=== PATIENT | female | born 1995 | race Two or more races ===

== ENCOUNTER 2019-05-09 08:57 | Emergency (ER) | payer SELFPAY ==
--- NOTE | 2019-05-09 09:36 | ER Document Report ---
ED Medical Screen (RME) - General Chief Complaint: OB Problem (<20wks) Stated Complaint: VAGINAL BLEEDING Time Seen by Provider: 05/09/19 09:30 Notes: Patient is a 23-year-old female G1, P0 who presents emergency department with a chief complaint of vaginal bleeding. Patient reports last menstrual cycle was on March 20. Patient reports she has been to the health department once and had her verified via urine specimen. Patient estimates being about 7 . Patient reports she woke up this morning and when she went to use the restroom she wiped and noticed some blood on the tissue paper. Patient reports she put a menstrual pad in place but has not checked it to see if she is still bleeding. Patient denies urinary symptoms. TRAVEL OUTSIDE OF THE [place] IN LAST 30 DAYS: No - Related Data Allergies/Adverse Reactions: No Known Allergies Allergy (Verified 05/09/19 09:30) Past Medical History - Social History Chew tobacco use (# tins/day): No Frequency of alcohol use: None Drug Abuse: None - Immunizations Hx Diphtheria, Pertussis, Tetanus Vaccination: Yes Physical Exam - Vital signs Vitals: Temp Pulse Resp BP Pulse Ox 98.7 F 83 18 131/80 H 99 05/09/19 09:00 05/09/19 09:00 05/09/19 09:00 05/09/19 09:00 05/09/19 09:00 - Abdominal Inspection: Normal Distension: No distension Bowel sounds: Normal Tenderness: Nontender Organomegaly: No organomegaly Course - Re-evaluation Re-evalutation: 05/09/19 09:36 Will obtain basic labs, quant, RhoGam work-up due to vaginal bleeding and and ultrasound. Patient was updated on plan of care at this time will be reevaluated by physician in the back. Patient's not tachycardic or hypotensive at this time. Patient is nontoxic-appearing in triage. I have greeted and performed a rapid initial assessment of this patient. A comprehensive ED assessment and evaluation of the patient, analysis of test results and completion of the medical decision making process will be conducted by additional ED providers. - Vital Signs Vital signs: Temp Pulse Resp BP Pulse Ox 98.7 F 83 18 131/80 H 99 05/09/19 09:00 05/09/19 09:00 05/09/19 09:00 05/09/19 09:00 05/09/19 09:00
[2019-05-09 10:09] LABS: ABSOLUTE LYMPHOCYTES (AUTO) 2.4 10^3/uL (0.5-4.7); ABSOLUTE MONOCYTES (AUTO) 0.7 10^3/uL (0.1-1.4); ABSOLUTE NEUT (AUTO) 6.2 10^3/uL (1.7-8.2); BASOPHILS % (AUTO) 0.4 % (0-2); EOSINOPHILS % (AUTO) 0.4 % (0-6); HEMATOCRIT 38.5 % (36.0-47.0); HEMOGLOBIN 12.8 g/dL (12.0-15.5); LYMPHOCYTES % (AUTO) 25.7 % (13-45); MEAN CORPUSCULAR HEMOGLOBIN 22.3 pg (27.0-33.4); MEAN CORPUSCULAR HGB CONC 33.4 g/dL (32.0-36.0); MEAN CORPUSCULAR VOLUME 67 fl (80-97); MONOCYTES % (AUTO) 7.2 % (3-13); PLATELET COUNT 282 10^3/uL (150-450); RED BLOOD COUNT 5.76 10^6/uL (3.72-5.28); RED CELL DISTRIBUTION WIDTH 16.3 % (11.5-14.0); SEGMENTED NEUTROPHILS % (AUTO) 66.3 % (42-78); TOTAL CELLS COUNTED % (AUTO) 100 %; WHITE BLOOD COUNT 9.4 10^3/uL (4.0-10.5)
[2019-05-09 10:14] LABS: APPEARANCE,URINE SLIGHTLY-CLOUDY; BILIRUBIN,URINE NEGATIVE (NEGATIVE); COLOR,URINE YELLOW; GLUCOSE, URINE NEGATIVE (NEGATIVE); KETONES,URINE NEGATIVE (NEGATIVE); LEUKOCYTE ESTERASE,URINE SMALL (NEGATIVE); NITRITE,URINE NEGATIVE (NEGATIVE); PROTEIN,URINE NEGATIVE (NEGATIVE); URINE SPECIFIC GRAVITY 1.009; UROBILINOGEN,URINE NEGATIVE mg/dL (<2.0)
[2019-05-09 10:26] LABS: ALBUMIN 4.6 g/dL (3.5-5.0); ALKALINE PHOSPHATASE 42 U/L (38-126); ANION GAP 10 (5-19); ASPARTATE AMINO TRANSFERASE 18 U/L (14-36); BILIRUBIN,TOTAL 0.3 mg/dL (0.2-1.3); BLOOD UREA NITROGEN 7 mg/dL (7-20); CALCIUM 9.5 mg/dL (8.4-10.2); CARBON DIOXIDE 25 mmol/L (22-30); CHLORIDE 101 mmol/L (98-107); GLUCOSE 87 mg/dL (75-110); POTASSIUM 4.3 mmol/L (3.6-5.0)
--- NOTE | 2019-05-09 11:34 | ER Document Report ---
ED General - General Chief Complaint: OB Problem (<20wks) Stated Complaint: VAGINAL BLEEDING Time Seen by Provider: 05/09/19 09:30 TRAVEL OUTSIDE OF THE [place] IN LAST 30 DAYS: No - HPI Notes: Patient is a 23-year-old female, G1, P0, at approximately 7 weeks gestation, who presents the emergency department for evaluation of vaginal bleeding. She had confirmed at the [facility], has not yet had a ultrasound. She states that she woke this morning, went to the bathroom, noticed bright red blood on her toilet paper. The blood is not continued. She denies any fevers or chills. She has had some nausea with one episode of emesis in the mornings for the last 7 days. She is still urinating. Normal bowel movements. No other acute complaints or concerns. - Related Data Allergies/Adverse Reactions: No Known Allergies Allergy (Verified 05/09/19 09:30) Home Medications: vitamin Past Medical History - General Information source: Patient Last Menstrual Period: 01/18/2019 - Social History Smoking Status: Never Smoker Chew tobacco use (# tins/day): No Frequency of alcohol use: None Drug Abuse: None Family History: Reviewed & Not Pertinent Patient has suicidal ideation: No Patient has homicidal ideation: No - Immunizations Hx Diphtheria, Pertussis, Tetanus Vaccination: Yes Review of Systems - Review of Systems Gastrointestinal: See HPI Female Genitourinary: See HPI Physical Exam - Vital signs Vitals: Temp Pulse Resp BP Pulse Ox 98.7 F 83 18 131/80 H 99 05/09/19 09:00 05/09/19 09:00 05/09/19 09:00 05/09/19 09:00 05/09/19 09:00 - Notes Notes: Vital signs reviewed, please refer to chart. Head is normocephalic, atraumatic. Pupils equal round, reactive to light. Neck is supple without meningismus. Heart is regular rate and rhythm. Lungs are clear to auscultation bilaterally. Abdomen is soft, nontender, normoactive bowel sounds throughout. Extremities without cyanosis, clubbing. Posterior calves are nontender. Peripheral pulses are equal. Skin is warm and dry. Patient is awake, alert, neurological exam is nonfocal. Course - Re-evaluation Re-evalutation: 05/09/19 11:33 Patient presents to the emergency department for evaluation. She had a small amount of vaginal bleeding, but this is not continued. Laboratory investigations are unremarkable. She is Rh+. Transvaginal ultrasound was performed, awaiting read from radiology. There is a subchorionic hemorrhage noted, which is likely etiology of bleeding. Findings were explained to the patient. They are to follow-up with gynecology, return to the ED with worsening. - Vital Signs Vital signs: Temp Pulse Resp BP Pulse Ox 98.7 F 83 18 131/80 H 99 05/09/19 09:00 05/09/19 09:00 05/09/19 09:00 05/09/19 09:00 05/09/19 09:00 - Laboratory Result Diagrams: 05/09/19 09:40 05/09/19 09:40 Laboratory results interpreted by me: 05/09/19 05/09/19 05/09/19 09:40 09:40 09:40 RBC 5.76 H MCV 67 L MCH 22.3 L RDW 16.3 H Sodium 136.3 L Creatinine 0.43 L Beta HCG, Quant 74215.00 H Urine Blood LARGE H Ur Leukocyte Esterase SMALL H - Diagnostic Test Radiology reviewed: Reports reviewed Radiology results interpreted by me: 05/09/19 12:19 Transvaginal US 05/09/19 09:34 IMPRESSION: 1. Living intrauterine with estimated ultrasound gestational age of 6 weeks and 6 days. 2. Small subchorionic bleed measuring 1.6 x 1.5 x 1.3 cm and occupying approximately 10% of the sac circumference. Trimester of : First trimester - 0 to 13 weeks. Discharge - Discharge Clinical Impression: Subchorionic hemorrhage in first trimester, Vaginal bleeding during Condition: Stable Disposition: HOME, SELF-CARE Instructions: Bleeding During Early ([facility]) Additional Instructions: Your ultrasound showed a subchorionic hemorrhage, no other abnormalities. There was a fetus noted with a strong heartbeat. Please follow-up with your OB as soon as possible. If you develop worsening or new concerning symptoms of any sort, please return immediately to the emergency department for evaluation. Your blood type is AB+
--- NOTE | 2019-05-09 12:02 | RADIOLOGY REPORT (SQ) ---
EXAM DESCRIPTION: U/S OB TRANSVAG W/DOPPLER COMPLETED DATE/TIME: 05/09/2019 11:29 am REASON FOR STUDY: 7 wks , vaginal bleeding COMPARISON: None. TECHNIQUE: Transvaginal static and realtime grayscale images acquired of the pelvis. Additional nicole cted spectral and color Doppler images recorded. All images stored on PACs. bHCG: Not available. CLINICAL DATES: VINAY 12/25/2019, EGA 7 weeks 1 day LIMITATIONS: None. FINDINGS: FETUS: Single Living intrauterine . ULTRASOUND EGA: 6 weeks 6 days ULTRASOUND VINAY: 12/27/2019 EFW: Not applicable less than 20 weeks. CRL: 9.1 mm FHR: 123 beats per minute. SURVEY: Too early to assess. AMNIOTIC FLUID: Adequate amount. PLACENTA: Not yet developed due to early gestation. SUBCHORIONIC BLEED: Yes. SIZE OF BLEED: Subchorionic bleed measuring 1.6 x 1.5 x 1.3 cm and occupying approximately 10% of the sac circumference. UTERUS: No masses. No anomalies. CERVICAL LENGTH: 4.1 cm Closed. RIGHT ADNEXA: Normal in size measuring 3.4 x 2.8 x 1.8 cm. Visualized vascular flow. No adnexal free fluid. No adnexal masses. LEFT ADNEXA: Normal in size measuring 3.5 x 2.8 x 2.5 cm. Visualized vascular flow. No adnexal free fluid. No adnexal masses. FREE FLUID: None. OTHER: No other significant finding. IMPRESSION: 1. Living intrauterine with estimated ultrasound gestational age of 6 weeks a nd 6 days. 2. Small subchorionic bleed measuring 1.6 x 1.5 x 1.3 cm and occupying approximately 10% of the sac circumference. Trimester of : First trimester - 0 to 13 weeks. TECHNICAL DOCUMENTATION: JOB ID: [id number] 2010 [employer]- All Rights Reserved rev-08/12 Reading location - IP/workstation name: [email or web address]
[2019-05-09 12:25] VITALS: BP 104/66
== END 2019-05-09 12:26 | disposition home or self-care (01) ==
LOC: ER 08:57
DX: O20.9 Hemorrhage in early pregnancy, unspecified (principal); R11.2 Nausea with vomiting, unspecified; Z3A.01 Less than 8 weeks gestation of pregnancy
CPT/HCPCS: 36415; 76817; 80053; 81001; 84702; 85025; 86900; 86901; 93976

== ENCOUNTER → 2019-06-11 | Outpatient (CLI) | payer SELFPAY ==
--- NOTE | 2019-06-11 14:35 | RADIOLOGY REPORT (SQ) ---
EXAM DESCRIPTION: U/S [id number] TRNABD 1GES W/ODOP COMPLETED DATE/TIME: 06/11/2019 2:15 pm REASON FOR STUDY: ENCNTR FOR SUPRVSN OF NORMAL FIRST PREG, FIRST TRI Z34.01 ENCNTR FOR SUPRVSN OF N ORMAL FIRST PREG, FIRST TRIMES COMPARISON: None. TECHNIQUE: Transabdominal static and realtime grayscale images acquired of the pelvis. Additional se lected spectral and color Doppler images recorded. All images stored on PACs. bHCG: Not available. CLINICAL DATES: 11 weeks 6 days. LIMITATIONS: None. FINDINGS: FETUS: Single Living intrauterine . ULTRASOUND EGA: 12 weeks 2 days. ULTRASOUND VINAY: 12/22/2019. EFW: Not applicable less than 20 weeks. CRL: 5.8 cm. FHR: 168 beats per minute. SURVEY: Too early to assess. AMNIOTIC FLUID: Adequate amount. PLACENTA: Not yet developed due to early gestation. SUBCHORIONIC BLEED: No. SIZE OF BLEED: Not applicable. UTERUS: No masses. No anomalies. CERVICAL LENGTH: 3.1 cm. Closed. RIGHT ADNEXA: Normal ovary with normal vascular flow. No adnexal free fluid. No adnexal masses. LEFT ADNEXA: Normal ovary with normal vascular flow. No adnexal free fluid. No adnexal masses. FREE FLUID: None. OTHER: No other significant finding. IMPRESSION: LIVING INTRAUTERINE . EGA 12 WEEKS 2 DAYS. Trimester of : First trimester - 0 to 13 weeks. TECHNICAL DOCUMENTATION: JOB ID: [id number] 2010 [employer]- All Rights Reserved Reading location - IP/workstation name: [email or web address]
== END ==
LOC: RAD 13:40
PROVIDERS: ATTEND Midwife
DX: Z34.01 Encounter for supervision of normal first pregnancy, first trimester (principal)
CPT/HCPCS: 76801

== ENCOUNTER 2019-10-07 16:47 | Outpatient (CLI) | payer MEDICAID ==
[2019-10-07 17:35] LABS: APPEARANCE,URINE CLEAR; BILIRUBIN,URINE NEGATIVE (NEGATIVE); COLOR,URINE YELLOW; GLUCOSE, URINE NEGATIVE (NEGATIVE); KETONES,URINE NEGATIVE (NEGATIVE); LEUKOCYTE ESTERASE,URINE SMALL (NEGATIVE); NITRITE,URINE NEGATIVE (NEGATIVE); PROTEIN,URINE NEGATIVE (NEGATIVE); URINE SPECIFIC GRAVITY 1.014; UROBILINOGEN,URINE NEGATIVE mg/dL (<2.0)
[2019-10-07 17:36] LABS: RBCS (WET MOUNT) 2+ RBCS SEEN; T.VAGINALIS (WET MOUNT) NO TRICHOMONAS SEEN; WBCS (WET MOUNT) 1+ WBCS SEEN; YEAST (WET MOUNT) NO YEAST SEEN
[2019-10-07 17:52] LABS: URINE AMPHETAMINES SCREEN NEGATIVE; URINE BARBITURATES SCREEN NEGATIVE; URINE BENZODIAZEPINES SCREEN NEGATIVE; URINE COCAINE SCREEN NEGATIVE; URINE MARIJUANA (THC) SCREEN NEGATIVE; URINE METHADONE SCREEN NEGATIVE; URINE PHENCYCLIDINE SCREEN NEGATIVE
[2019-10-07 19:02] LABS: CHLAM PCR NOT DETECTED (NOT DETECT)
== END 2019-10-07 18:11 | disposition home or self-care (01) ==
LOC: LC 16:47
PROVIDERS: ATTEND Obstetrics & Gynecology
DX: O46.8X3 Other antepartum hemorrhage, third trimester (principal); N93.0 Postcoital and contact bleeding; Z3A.28 28 weeks gestation of pregnancy
CPT/HCPCS: 80307; 81001; 87210; 87491; 87591

== ENCOUNTER 2019-12-07 10:38 | Outpatient (CLI) | payer MEDICAID ==
[2019-12-07 11:13] LABS: APPEARANCE,URINE CLOUDY; BILIRUBIN,URINE NEGATIVE (NEGATIVE); COLOR,URINE YELLOW; GLUCOSE, URINE NEGATIVE (NEGATIVE); KETONES,URINE NEGATIVE (NEGATIVE); LEUKOCYTE ESTERASE,URINE LARGE (NEGATIVE); NITRITE,URINE NEGATIVE (NEGATIVE); PROTEIN,URINE 100 mg/dL (NEGATIVE); UROBILINOGEN,URINE NEGATIVE mg/dL (<2.0)
[2019-12-07 11:32] LABS: URINE AMPHETAMINES SCREEN NEGATIVE; URINE BARBITURATES SCREEN NEGATIVE; URINE BENZODIAZEPINES SCREEN NEGATIVE; URINE COCAINE SCREEN NEGATIVE; URINE MARIJUANA (THC) SCREEN NEGATIVE; URINE METHADONE SCREEN NEGATIVE; URINE PHENCYCLIDINE SCREEN NEGATIVE
--- NOTE | 2019-12-07 11:59 | Non Stress Test Report ---
Non Stress Test Datetime Report Generated by CPN: 12/07/2019 11:59 DEMOGRAPHIC Test Number: 1 EGA NST: 37.3 INDICATION Indication for Study (NST) Other: IUP at 37.3; N/V VITAL SIGNS Temperature - NST: 98.3 Pulse - NST: 96 RESP - NST: 18 NBPSYS NST: 125 NBPDIA NST: 72 MONITORING Monitor Explained: Monitor Explained; Test Explained; Patient Verbalized Understanding Time on Monitor: 12/07/2019 10:51 Time off Monitor: 12/07/2019 11:44 NST Duration: 53 NST INTERVENTIONS NST Interventions: PO Hydration Physician Notified NST: Dr. Vicente BABY A: [id number] BABY A Movement : Present Contraction Frequency : x1 FHR Baseline : 145 Accelerations : 15X15 Decelerations : None Variability : Moderate 6-25bpm NST Review: Meets Criteria for Reactive NST NST Review and Verified By : DARREN Jackson NST Results: Reactive NST REPORT Report Trigger: Send Report
== END 2019-12-07 11:54 | disposition home or self-care (01) ==
LOC: LC 10:38
PROVIDERS: ATTEND Student in an Organized Health Care Education/Training Program
DX: O21.2 Late vomiting of pregnancy (principal); Z3A.37 37 weeks gestation of pregnancy
CPT/HCPCS: 59025; 80307; 81005

== ENCOUNTER 2019-12-12 01:53 | Inpatient (IN) | payer MEDICAID ==
[2019-12-12 02:37] LABS: APPEARANCE,URINE SLIGHTLY-CLOUDY; BILIRUBIN,URINE NEGATIVE (NEGATIVE); COLOR,URINE YELLOW; GLUCOSE, URINE NEGATIVE (NEGATIVE); KETONES,URINE NEGATIVE (NEGATIVE); LEUKOCYTE ESTERASE,URINE TRACE (NEGATIVE); NITRITE,URINE NEGATIVE (NEGATIVE); PROTEIN,URINE 30 mg/dL (NEGATIVE); UROBILINOGEN,URINE NEGATIVE mg/dL (<2.0)
[2019-12-12] MEDS ORDERED: RINGERS SOLUTION,LACTATED 1,000 ML IV ONE (02:42)
[2019-12-12] MEDS ORDERED: PENICILLIN G POTASSIUM 5,000,000 UNIT in DEXTROSE 5%-WATER 100 ML IV ONE (02:42)
[2019-12-12] MEDS ORDERED: PENICILLIN G-K 5 MILLION UNIT VIAL ONE (02:52)
[2019-12-12 03:13] LABS: URINE AMPHETAMINES SCREEN NEGATIVE; URINE BARBITURATES SCREEN NEGATIVE; URINE BENZODIAZEPINES SCREEN NEGATIVE; URINE COCAINE SCREEN NEGATIVE; URINE MARIJUANA (THC) SCREEN NEGATIVE; URINE METHADONE SCREEN NEGATIVE; URINE PHENCYCLIDINE SCREEN NEGATIVE
[2019-12-12] MEDS: RINGERS SOLUTION,LACTATED 1,000 ML IV PRN ×2 (03:22→08:30)
[2019-12-12 03:30] LABS: MEAN CORPUSCULAR HEMOGLOBIN 20.3 pg (27.0-33.4); TOTAL CELLS COUNTED % (AUTO) 100 %
[2019-12-12 03:35] LABS: ABSOLUTE LYMPHOCYTES (AUTO) 1.6 10^3/uL (0.5-4.7); ABSOLUTE MONOCYTES (AUTO) 0.8 10^3/uL (0.1-1.4); ABSOLUTE NEUT (AUTO) 9.1 10^3/uL (1.7-8.2); BASOPHILS % (AUTO) 0.3 % (0-2); EOSINOPHILS % (AUTO) 0.3 % (0-6); HEMATOCRIT 26.4 % (36.0-47.0); HEMOGLOBIN 8.6 g/dL (12.0-15.5); LYMPHOCYTES % (AUTO) 14.1 % (13-45); MEAN CORPUSCULAR HGB CONC 32.7 g/dL (32.0-36.0); MONOCYTES % (AUTO) 7.1 % (3-13); PLATELET COUNT 176 10^3/uL (150-450); RED BLOOD COUNT 4.25 10^6/uL (3.72-5.28); RED CELL DISTRIBUTION WIDTH 18.8 % (11.5-14.0); SEGMENTED NEUTROPHILS % (AUTO) 78.2 % (42-78); WHITE BLOOD COUNT 11.6 10^3/uL (4.0-10.5)
[2019-12-12 03:48] LABS: ANISOCYTOSIS 1+; OVALOCYTES SLIGHT; PLATELET COMMENT ADEQUATE; POIKILOCYTOSIS SLIGHT; POLYCHROMASIA SLIGHT; SCHISTOCYTES SLIGHT; TEAR DROP CELLS SLIGHT; TOXIC GRANULATION 1+
[2019-12-12 03:49] LABS: MEAN CORPUSCULAR VOLUME 62 fl (80-97)
[2019-12-12] MEDS ORDERED: OXYTOCIN 10 UNIT/ML VIAL ONE (04:02)
[2019-12-12] MEDS ORDERED: MISOPROSTOL 0.2 MG TABLET ONE (04:02)
[2019-12-12] MEDS ORDERED: LIDOCAINE 1% INJ-PF (10 MG/ML) 30 ML SDV ONE (04:03)
[2019-12-12] MEDS ORDERED: OXYTOCIN/0.9 % SODIUM CHLORIDE 30 UNIT/500 ML RTUINJ ONE (04:03)
[2019-12-12] MEDS ORDERED: EPHEDRINE SULFATE INJ 50 MG/1 ML AMPULE ONE (05:26)
[2019-12-12] MEDS ORDERED: FENTANYL/BUPIVACAINE/NS/PF 300 MCG/150 ML RTUINJ EPI ONE (05:26)
[2019-12-12] MEDS ORDERED: ROPIVACAINE HCL 0.2% INJ/PF (2 MG/ML) 20 ML SDV ONE (05:26)
--- NOTE | 2019-12-12 07:16 | Admission Physical ---
Datetime Report Generated by CPN: 12/12/2019 07:16 CURRENT ADMISSION Chief Complaint: Uterine Contractions; Suspected Ruptured Membranes Indication for Induction: Not Applicable Admit Impression : Term, Intrauterine ; Active Labor Admit Plan: Admit to Unit ALLERGIES Medication Allergies: No Medication Allergies: No Known Allergies (12/12/2019) Latex: No Latex Allergies OBSTETRICAL HISTORY EDC: 12/25/2019 00:00 : 1 Para: 0 Term: 0 : 0 SAB: 0 IAB: 0 Ectopic: 0 Livin Cesareans: 0 VBACs: 0 Multiple Births: 0 Gestational Diabetes: No Rh Sensitization: No Incompetent Cervix: No RICHAR: No Infertility: No ART Treatment: No Uterine Anomaly: No IUGR: No Hx Previous C/S: No Macrosomia: No Hx Loss/Stillborn: No PIH: No Hx : No Placenta Previa/Abruption: No Depression/PP Depression: No PTL/PROM: No Post Hemorrhage: No Current Procedures: Ultrasound Obstetrical History Comments: G1- Current SEE RECORDS Alcohol: No Marijuana : No Cocaine: No Other Illicit Drugs: No Cigarettes: Never Smoker. [id number] MEDICAL HISTORY Diabetes: No Blood Transfusion: No Pulmonary Disease (Asthma, TB): No Breast Disease: No Hypertension: No Store Stock Associate Surgery: No Heart Disease: No Hosp/Surgery: No Autoimmune Disorder: No Anesthetic Complications: No Kidney Disease: No Abnormal Pap Smear: No Neuro/Epilepsy: No Psychiatric Disorders: No Other Medical Diseases: No Hepatitis/Liver Disease: No Significant Family History: No Varicosities/Phlebitis: No Trauma/Violence : No Thyroid Dysfunction: No INFECTIOUS HISTORY Gonorrhea: No Genital Herpes: No Chlamydia: No Tuberculosis: No Syphilis: No Hepatitis: No HIV/AIDS Exposure: No Rash or Viral Illness: No HPV: No PHYSICAL EXAM General: Normal HEENT: Normal Neurologic: Normal Thyroid: Normal Heart: Normal Lungs: Normal Breast: Deferred Back: Normal Abdomen: Normal Genitourinary Exam: Normal Extremities: Normal DTRs: Normal Pelvic Type: Adequate Vital Signs: Reviewed VAGINAL EXAM Dilatation: 7 Effacement: 90 Station: -1 MEMBRANES Pooling: Positive Membranes: Ruptured FETUS A EGA: 38.1 Monitoring: External US FHR- Baseline: 120 Variability: Moderate 6-25bpm Decelerations: None Estimated Weight (gm): 4000 Presentation: Vertex Admit Comment: Labor PLANS FOR LABOR AND DELIVERY Labor and Delivery: None Pain Management: Epidural Feeding Preference: Breast Circumcision: Yes INFORMED CONSENT Signature: with User ID: [email or web address]
[2019-12-12] MEDS: PENICILLIN G POTASSIUM 2,500,000 UNIT in DEXTROSE 5%-WATER 50 ML IV SCH ×2 (07:33→12:28)
[2019-12-12] MEDS ORDERED: OXYTOCIN/0.9 % SODIUM CHLORIDE 30 UNIT/500 ML RTUINJ IV PRN ×2 (10:09→16:19)
[2019-12-12] MEDS ORDERED: MEASLES,MUMPS&RUBELLA VACC/PF 0.5 ML VIAL SUBCUT PRN (16:19)
[2019-12-12] MEDS ORDERED: BENZOCAINE/MENTHOL AEROSOL SPRAY 56 ML TOP PRN (16:19)
[2019-12-12] MEDS ORDERED: ACETAMINOPHEN 325 MG TABLET PO PRN (16:19)
[2019-12-12] MEDS ORDERED: DIPH/PERTUSS(ACELL)/TETANUS VAC/PF 0.5 ML SYR (>=10YO) IM PRN (16:19)
[2019-12-12] MEDS ORDERED: DIBUCAINE 1% OINTMENT 28 GM TP PRN (16:19)
[2019-12-12] MEDS ORDERED: MAGNESIUM HYDROXIDE SUSP 30 ML UDCUP PO PRN (16:19)
[2019-12-12] MEDS ORDERED: PSEUDOEPHEDRINE HCL 30 MG TABLET PO PRN (16:19)
[2019-12-12] MEDS ORDERED: DIPHENHYDRAMINE HCL 25 MG CAPSULE PO PRN (16:19)
[2019-12-12] MEDS ORDERED: GLYCERIN/WITCH HAZEL LEAF 1 EACH MED..WIPE TP PRN (16:19)
[2019-12-12] MEDS ORDERED: PROMETHAZINE HCL INJ 25 MG/1 ML VIAL IV PRN (16:19)
[2019-12-12] MEDS ORDERED: PROMETHAZINE HCL 25 MG TABLET PO PRN (16:19)
[2019-12-12] MEDS ORDERED: NA PHOS,M-B/NA PHOS,DI-BA (ADULT) 133 ML ENEMA PR PRN (16:19)
[2019-12-12] MEDS ORDERED: PROMETHAZINE HCL 25 MG SUPP.RECT PR PRN (16:19)
[2019-12-12] MEDS: IBUPROFEN 800 MG TABLET PO SCH ×2 (17:56→22:23)
[2019-12-12] MEDS: FERROUS SULFATE 325 MG TABLET PO SCH (18:15)
[2019-12-12] MEDS: DOCUSATE SODIUM 100 MG CAPSULE PO SCH (18:15)
[2019-12-12] MEDS: FAMOTIDINE 20 MG TABLET PO SCH (22:24)
[2019-12-13] MEDS: IBUPROFEN 800 MG TABLET PO SCH ×3 (05:45→21:26)
[2019-12-13 07:02] LABS: HEMATOCRIT 24.8 % (36.0-47.0); MEAN CORPUSCULAR HEMOGLOBIN 19.9 pg (27.0-33.4); MEAN CORPUSCULAR HGB CONC 31.4 g/dL (32.0-36.0); RED BLOOD COUNT 3.91 10^6/uL (3.72-5.28); RED CELL DISTRIBUTION WIDTH 18.8 % (11.5-14.0)
[2019-12-13 08:03] LABS: HEMOGLOBIN 7.8 g/dL (12.0-15.5); MEAN CORPUSCULAR VOLUME 63 fl (80-97)
[2019-12-13 08:07] LABS: PLATELET COUNT 185 10^3/uL (150-450)
[2019-12-13] MEDS ORDERED: IRON SUCROSE COMPLEX INJ/PF 100 MG/5 ML SDV IV ONE (09:00)
[2019-12-13] MEDS: DOCUSATE SODIUM 100 MG CAPSULE PO SCH ×2 (09:29→17:15)
[2019-12-13] MEDS: PRENATAL VITAMIN W DHA CAPSULE PO SCH (09:29)
[2019-12-13] MEDS: FAMOTIDINE 20 MG TABLET PO SCH ×2 (09:29→21:26)
[2019-12-13] MEDS: FERROUS SULFATE 325 MG TABLET PO SCH ×2 (09:29→17:15)
[2019-12-13] MEDS: SENNOSIDES/DOCUSATE 8.6-50 MG 1 EACH TABLET PO SCH (09:29)
--- NOTE | 2019-12-13 11:59 | PDOC PROGRESS REPORT ---
Subjective-OB Progress Note for:: 12/13/19 Subjective: Pt is resting quietly, FOB at bedside with baby. Rn reports she is doing well, no heavy bleeding, reg diet. Physical Exam (OB) Vital Signs: Temp Pulse Resp BP Pulse Ox 98.2 F 56 L 17 93/55 L 99 12/13/19 08:00 12/13/19 08:00 12/13/19 08:00 12/13/19 08:00 12/13/19 08:00 Intake & Output 12/12/19 12/13/19 12/14/19 06:59 06:59 06:59 Intake Total 1192 Balance 1192 Weight 75.2 kg - PIH/Pre-Eclampsia Headache: Absent Epigastric Pain: No Visual Changes: No - Maternal Morbidity 59. Maternal Morbidity (serious complications experinced by the mother associated with labor and delivery: None of the above - Lochia Lochia Amount: Small 10-25 ml Lochia Color: Rubra/Red - Abdomen Description: Soft Hernia Present: No Fundal Description: Firm, Midline Fundal Height: u/u - u/2 Objective-Diagnostic Laboratory: 12/13/19 06:03 12/13/19 06:03 WBC 16.0 H RBC 3.91 Hgb 7.8 L Hct 24.8 L MCV 63 L MCH 19.9 L MCHC 31.4 L RDW 18.8 H Plt Count 185 Assessment and Plan(PN) - Assessment and Plan (1) Active labor at term Is this a current diagnosis for this admission?: Yes (2) Vaginal delivery Is this a current diagnosis for this admission?: Yes - Time Spent with Patient Time with patient: Less than 15 minutes Medications reviewed and adjusted accordingly: Yes - Disposition Anticipated Discharge Disposition: Home, Self Care Anticipated Discharge Timeframe: within 24 hours
[2019-12-13 12:45] LABS: PATH REVIEW PATHOLOGIST REVIEWED
[2019-12-13] MEDS ORDERED: DIPH/PERTUSS(ACELL)/TETANUS VAC/PF 0.5 ML SYR (>=10YO) IM PRN (13:00)
[2019-12-13] MEDS ORDERED: MEASLES,MUMPS&RUBELLA VACC/PF 0.5 ML VIAL SUBCUT PRN (13:00)
[2019-12-13] MEDS ORDERED: PROMETHAZINE HCL INJ 25 MG/1 ML VIAL IV PRN (13:00)
[2019-12-14] MEDS: IBUPROFEN 800 MG TABLET PO SCH (05:23)
[2019-12-14 08:05] VITALS: BP 109/58
--- NOTE | 2019-12-14 09:39 | PDOC PROGRESS REPORT ---
Subjective-OB Progress Note for:: 12/14/19 Subjective: Doing well, no c/o, ready to go home, , voiding, ambulating Physical Exam (OB) Vital Signs: Temp Pulse Resp BP Pulse Ox 97.7 F 96 17 109/58 L 100 12/14/19 08:00 12/14/19 08:00 12/14/19 08:00 12/14/19 08:00 12/14/19 08:00 Intake & Output 12/13/19 12/14/19 12/15/19 06:59 06:59 06:59 Intake Total 1192 1999 Balance 1192 1999 - PIH/Pre-Eclampsia Clonus: Negative Headache: Absent Epigastric Pain: No Visual Changes: No - Maternal Morbidity 59. Maternal Morbidity (serious complications experinced by the mother associated with labor and delivery: None of the above - Lochia Lochia Amount: Scant < 10 ml Lochia Color: Rubra/Red - Abdomen Description: Soft, Round Hernia Present: No Fundal Description: Firm, Midline Fundal Height: u/u - u/2 Objective-Diagnostic Laboratory: 12/13/19 06:03 Assessment and Plan(PN) - Assessment and Plan (1) GBS (group B Streptococcus carrier), +RV culture, currently Is this a current diagnosis for this admission?: Yes (2) Anemia Qualifiers: Anemia type: iron deficiency Is this a current diagnosis for this admission?: Yes (3) Active labor at term Is this a current diagnosis for this admission?: Yes (4) Vaginal delivery Is this a current diagnosis for this admission?: Yes - Time Spent with Patient Time with patient: Less than 15 minutes Medications reviewed and adjusted accordingly: Yes - Disposition Anticipated Discharge Disposition: Home, Self Care Anticipated Discharge Timeframe: within 24 hours - home today, rev S&S to report
--- NOTE | 2019-12-14 09:45 | PDOC DISCHARGE SUMMARY ---
Impression - Admit/DC Date/PCP Admission Date/Primary Care Provider: 12/12/19 02:55 ARTURO SCHNEIDER CNM Discharge Date: 12/14/19 - Discharge Diagnosis (1) GBS (group B Streptococcus carrier), +RV culture, currently Is this a current diagnosis for this admission?: Yes (2) Anemia Is this a current diagnosis for this admission?: Yes (3) Active labor at term Is this a current diagnosis for this admission?: Yes (4) Vaginal delivery Is this a current diagnosis for this admission?: Yes - Additional Information Resuscitation Status: Full Code Discharge Diet: As Tolerated, Regular Discharge Activity: Activity As Tolerated, Pelvic Rest Referrals: ARTURO SCHNEIDER CNM [Primary Care Provider] - Home Medications: Vit,Calc76/Iron/Folic [Prenatabs Rx Tablet] 1 each PO DAILY 10/07/19 Acetaminophen [Tylenol 325 mg Tablet] 650 mg PO Q6HP PRN 12/07/19 Ferrous Sulfate [Feosol 325 mg Tablet] 325 mg PO BID tablet 12/14/19 HPI Gestational Age: 38.1 Reason(s) for Admission: PROM, Group B Strep Positive Admission Note: augmented with Pitocin Procedures: Ultrasound Intrapartum Procedure(s): Spontaneous Vaginal Delivery - labial abrasion Hospital Course Hospital Course: routine 59. Maternal Morbidity (serious complications experinced by the mother associated with labor and delivery: None of the above Results Laboratory Results: WBC 16.0 10^3/uL (4.0-10.5) H 12/13/19 06:03 RBC 3.91 10^6/uL (3.72-5.28) 12/13/19 06:03 Hgb 7.8 g/dL (12.0-15.5) L 12/13/19 06:03 Hct 24.8 % (36.0-47.0) L 12/13/19 06:03 MCV 63 fl (80-97) L 12/13/19 06:03 MCH 19.9 pg (27.0-33.4) L 12/13/19 06:03 MCHC 31.4 g/dL (32.0-36.0) L 12/13/19 06:03 RDW 18.8 % (11.5-14.0) H 12/13/19 06:03 Plt Count 185 10^3/uL (150-450) 12/13/19 06:03 Lymph % (Auto) 14.1 % (13-45) 12/12/19 03:01 Elbert % (Auto) 7.1 % (3-13) 12/12/19 03:01 Eos % (Auto) 0.3 % (0-6) 12/12/19 03:01 Baso % (Auto) 0.3 % (0-2) 12/12/19 03:01 Absolute Neuts (auto) 9.1 10^3/uL (1.7-8.2) H 12/12/19 03:01 Absolute Lymphs (auto) 1.6 10^3/uL (0.5-4.7) 12/12/19 03:01 Absolute Monos (auto) 0.8 10^3/uL (0.1-1.4) 12/12/19 03:01 Absolute Eos (auto) 0.0 10^3/uL (0.0-0.6) 12/12/19 03:01 Absolute Basos (auto) 0.0 10^3/uL (0.0-0.2) 12/12/19 03:01 Seg Neutrophils % 78.2 % (42-78) H 12/12/19 03:01 Toxic Granulation 1+ 12/12/19 03:01 Platelet Comment ADEQUATE 12/12/19 03:01 Polychromasia SLIGHT 12/12/19 03:01 Poikilocytosis SLIGHT 12/12/19 03:01 Anisocytosis 1+ 12/12/19 03:01 Microcytosis 3+ 12/12/19 03:01 Tear Drop Cells SLIGHT 12/12/19 03:01 Ovalocytes SLIGHT 12/12/19 03:01 Schistocytes SLIGHT 12/12/19 03:01 Urine Color YELLOW 12/12/19 02:05 Urine Appearance SLIGHTLY-CLOUDY 12/12/19 02:05 Urine pH 6.0 (5.0-9.0) 12/12/19 02:05 Ur Specific [place] 1.020 12/12/19 02:05 Urine Protein 30 mg/dL (NEGATIVE) H 12/12/19 02:05 Urine Glucose (UA) NEGATIVE mg/dL (NEGATIVE) 12/12/19 02:05 Urine Ketones NEGATIVE mg/dL (NEGATIVE) 12/12/19 02:05 Urine Blood NEGATIVE (NEGATIVE) 12/12/19 02:05 Urine Nitrite NEGATIVE (NEGATIVE) 12/12/19 02:05 Urine Bilirubin NEGATIVE (NEGATIVE) 12/12/19 02:05 Urine Urobilinogen NEGATIVE mg/dL (<2.0) 12/12/19 02:05 Ur Leukocyte Esterase TRACE (NEGATIVE) H 12/12/19 02:05 Urine Ascorbic Acid NEGATIVE (NEGATIVE) 12/12/19 02:05 Membranes Rupture POSITIVE (NEGATIVE) H 12/12/19 02:05 Urine Opiates Screen NEGATIVE 12/12/19 02:05 Urine Methadone Screen NEGATIVE 12/12/19 02:05 Ur Barbiturates Screen NEGATIVE 12/12/19 02:05 Ur Phencyclidine Scrn NEGATIVE 12/12/19 02:05 Ur Amphetamines Screen NEGATIVE 12/12/19 02:05 U Benzodiazepines Scrn NEGATIVE 12/12/19 02:05 Urine Cocaine Screen NEGATIVE 12/12/19 02:05 U Marijuana (THC) Screen NEGATIVE 12/12/19 02:05 RPR NONREACTIVE (NONREACTIVE) 12/12/19 03:01 Slides for Path Review PATHOLOGIST REVIEWED 12/13/19 06:03 Blood Type AB POSITIVE 12/12/19 03:01 Antibody Screen NEGATIVE 12/12/19 03:01 Plan Health Concerns: routine Plan of Treatment: discharge home, take iron and PNV, rev S&S to report Goals: no complications Time Spent: Less than 30 Minutes
[2019-12-14] MEDS: PRENATAL VITAMIN W DHA CAPSULE PO SCH (10:02)
[2019-12-14] MEDS: SENNOSIDES/DOCUSATE 8.6-50 MG 1 EACH TABLET PO SCH (10:02)
[2019-12-14] MEDS: DOCUSATE SODIUM 100 MG CAPSULE PO SCH (10:02)
[2019-12-14] MEDS: FAMOTIDINE 20 MG TABLET PO SCH (10:02)
[2019-12-14] MEDS: FERROUS SULFATE 325 MG TABLET PO SCH (10:02)
--- NOTE | 2019-12-17 15:35 | Delivery Summary ---
Del Sum A-C Datetime Report Generated by CPN: 12/17/2019 15:34 DELIVERY PERSONNEL DELIVERY PERSONNEL: [id number] Nurse Director Of Maintenance Certified:: Shilpi Mazariegos CNM Labor and Delivery Nurse:: Ernestina Ye RN Nursery Nurse:: Lani Navarro RN Nursery Nurse:: Enedina Barrios RN Student Observers:: Ddee Loya RN - nurse resident Route Process Administrator/OPERATIONS PLANT ATTENDANT: [facility] Route Process Administrator/OPERATIONS PLANT ATTENDANT: Whit Hall, STRIKE ON MACHINE OPERATOR MATERNAL INFORMATION Delivery Anesthesia: Epidural Medications After Delivery: Pitocin 30 Units in 500ml NS/D5W Meds After Delivery Comment: 200mLs open bolus and remainder @ 95mLs/hr Delivery QBL: 19 Maternal Complications: None Provider Comments: pt progressed to c/c/+1 began pushing and quickly delivered a viable baby boy. head delivered through nuchal x1 then cord reduced and rest of the body delivered (terminal mec noted). Baby placed on maternal abdomen, cord allowed to stop pulsating then clamped x2 (3vc noted). Placenta delivered spontaneously intact, fundus firm at u-1. Scant bleeding, mother and baby remain stable and skin to skin at this time. Vaginal and perineal inspection revealed labial abrasions as stated. Nursery present for delivery. LABOR SUMMARY EDC: 12/25/2019 00:00 No. Babies in Womb: 1 Attempted: No Labor Anesthesia: Epidural LABOR INFORMATION Reason for Induction: Not Applicable Onset of Labor: 12/12/2019 00:30 Complete Dilatation: 12/12/2019 15:05 Oxytocin: Augmentation Group B Beta Strep: positive Antibiotics # of Doses: 3 Antibiotics Time of Last Dose: 12/12/2019 12:28 Name of Antibiotic Given: Penicillin Steroids Given: None Reason Steroids Not Administered: Not Applicable [facility] Membranes Rupture Method: Spontaneous Membranes Rupture Method: Spontaneous Rupture of Membranes: 12/12/2019 00:30 Rupture of Membranes: 12/12/2019 00:30 Length of Rupture (hr): 15.13 Length of Rupture (hr): 15.13 Amniotic Fluid Color: Clear Amniotic Fluid Color: Clear Amniotic Fluid Amount: Moderate Amniotic Fluid Amount: Moderate Amniotic Fluid Odor: Normal Amniotic Fluid Odor: Normal STAGES OF LABOR Stage 1 hr: 14 Stage 1 min: 35 Stage 2 hr: 0 Stage 2 min: 33 Stage 3 hr: 0 Stage 3 min: 5 Total Time in Labor hr: 15 Total Time in Labor min: 13 VAGINAL DELIVERY Episiotomy: None Laceration #1: None Other Laceration: bilateral labial abrasions-not bleeding Laceration Repair: Not Applicable Sponge Count Correct: Yes Sharps Count Correct: N/A CSECTION DELIVERY Primary Indication: N/A Secondary Indication: N/A CSection Incidence: N/A Labor: N/A Elective: N/A CSection Incision: N/A BABY A INFORMATION Delivery Date/Time: 12/12/2019 15:38 Method of Delivery: Vaginal Nurse Controlled Delivery: No Born in Route : No : N/A Forceps: N/A Vacuum Extraction: N/A Shoulder Dystocia : No PRESENTATION/POSITION BABY A Presentation: Cephalic Cephalic Presentation: Vertex Vertex Position: Right Occipital Anterior Breech Presentation: N/A PLACENTA INFORMATION BABY A Placenta Delivery Time : 12/12/2019 15:43 Placenta Method of Delivery: Spontaneous Placenta Status: Delivered SCORES BABY A Heart Rate 1 min: >100 bpm Resp Effort 1 min: Good Cry Reflex Irritability 1 min: Cough or Sneeze or Pulls Away Muscle Tone 1 min: Active Motion Color 1 min: Blue/Pale Resuscitation Effort 1 min: Tactile Stimulation SCORE 1 MIN: 8 Heart Rate 5 min: >100 bpm Resp Effort 5 min: Good Cry Reflex Irritability 5 min: Cough or Sneeze or Pulls Away Muscle Tone 5 min: Active Motion Color 5 min: Body [place], Extremities Blue Resuscitation Effort 5 min: Tactile Stimulation SCORE 5 MIN: 9 INFORMATION BABY A Gestational Age at Delivery: 38.1 Gestational Status: Early Term- 37- 38.6 Weeks Outcome : Liveborn Infant Condition : Stable Infant Sex: Male IDENTIFICATION BABY A Verification Date/Time: 12/12/2019 17:00 ID Band Number: [id number] Mother's Name Verified: Yes Infant RN Verifying : RBianka Ye, RN Additional Verifying Personnel: A. Worthington, RN WEIGHT/LENGTH BABY A Birthweight (gm): 3640 Infant Weight (lb): 8 Infant Weight (oz): 0 Length (in): 21.00 Infant Length (cm): 53.34 CORD INFORMATION BABY A No. Cord Vessels: 3 Nuchal Cord : Around Neck x1, Loose Cord Blood Taken: Yes-For Storage (Mom's Blood type +) Infant Suction: Mouth; Nose ASSESSMENT BABY A Skin to Skin: Yes Skin to Skin Time (min): 90 BABY B INFORMATION : N/A SIGNATURES Assignment: Liv Faustin MD Signature: with User ID: [email or web address] : with User ID: [email or web address]
== END 2019-12-14 13:46 | disposition home or self-care (01) | DRG 807 ==
LOC: LC 01:53 → LR 02:55 → 2S 17:30
PROVIDERS: ADMIT Obstetrics & Gynecology; ATTEND Obstetrics & Gynecology
PROC: 10E0XZZ Delivery of Products of Conception, External Approach (ICD-10-PCS; principal; 2019-12-12)
DX: O99.824 Streptococcus B carrier state complicating childbirth (principal); O77.0 Labor and delivery complicated by meconium in amniotic fluid; O69.81X0 Labor and delivery complicated by cord around neck, without compression, not applicable or unspecified; O70.0 First degree perineal laceration during delivery; O99.02 Anemia complicating childbirth; D50.9 Iron deficiency anemia, unspecified; Z37.0 Single live birth; Z3A.38 38 weeks gestation of pregnancy
CPT/HCPCS: 1967; 36415; 80307; 81005; 84112; 85025; 85027; 86592; 86850; 86900; 86901; J1756; J2540; J2590; J2795; J3010; J3490; J7060